=== PATIENT | female | born 1960 | race Caucasian/White ===

== ENCOUNTER 2022-02-17 14:09 | Inpatient (IN) | payer MEDICARE, OTHER ==
[2022-02-17] MEDS ORDERED: Sodium Chloride 0.9% 10 ML Syringe FLUSH PRN (14:35)
[2022-02-17] MEDS ORDERED: Sodium Chloride 0.9% 1,000 ML IV ONE (14:40)
[2022-02-17 15:30] LABS: CORONAVIRUS COVID-19 NAA NEGATIVE (NEGATIVE)
[2022-02-17 15:45] LABS: PTT,PARTIAL THROMBOPLSTIN TIME 21.6 SEC (22.0-34.0)
[2022-02-17] MEDS ORDERED: Acetaminophen 500 MG Tab PO ONE (15:56)
[2022-02-17 16:25] LABS: ANION GAP 21.9 mEq/L (7-13); CHLORIDE,CL 97 mmol/L (98-107); SODIUM,NA 138 mmol/L (136-145)
[2022-02-17 16:33] LABS: ESTIMATED GFR 44 mL/min (>=60)
[2022-02-17] MEDS ORDERED: NS with KCl 40mEq 1,000 ML IV SCH (16:45)
[2022-02-17] MEDS ORDERED: Magnesium Sulfate/Water 2 GM in Premix Bag 1 BAG IV ONE ×4 (16:51)
[2022-02-17 16:59] LABS: OXYCODONE,URINE POSITIVE (NEGATIVE)
[2022-02-17 17:00] LABS: AMPHETAMINES,URINE NEGATIVE (NEGATIVE); BARBITURATES,URINE NEGATIVE (NEGATIVE); BENZODIAZEPINE,URINE NEGATIVE (NEGATIVE); MDMA (ECSTASY), URINE NEGATIVE (NEGATIVE); METHADONE,URINE NEGATIVE (NEGATIVE); METHAMPHETAMINES,URINE NEGATIVE (NEGATIVE); OPIATES,URINE NEGATIVE (NEGATIVE); PHENCYCLIDINE,URINE NEGATIVE (NEGATIVE); TCA,URINE POSITIVE (NEGATIVE)
[2022-02-17] MEDS ORDERED: HYDROmorphone 1 MG/ML Syringe IVPUSH ONE (17:03)
[2022-02-17] MEDS ORDERED: HYDROmorphone 0.5 MG/0.5 ML Syringe IVPUSH PRN (20:27)
[2022-02-17] MEDS ORDERED: Bisacodyl 5 MG Tab PO PRN (20:27)
[2022-02-17] MEDS ORDERED: Ondansetron 4 MG/2 ML SDV IVPUSH PRN (20:27)
[2022-02-17] MEDS ORDERED: Magnesium Hydroxide 400 MG/5 ML Susp 30 ML Cup PO PRN (20:27)
[2022-02-17] MEDS ORDERED: Albuterol/Ipratropium 3.0-0.5 MG/3 ML Neb Soln NEB PRN (20:27)
[2022-02-17] MEDS ORDERED: Polyethylene Glycol 3350 Powder 17 GM Packet PO PRN (20:27)
[2022-02-17] MEDS ORDERED: Pantoprazole 40 MG Vial IVPUSH ONE (21:28)
[2022-02-17] MEDS ORDERED: Sodium Chloride 0.9% 1,000 ML IV SCH (21:30)
[2022-02-17] MEDS ORDERED: Metoprolol Tartrate 5 MG/5 ML SDV IVPUSH PRN (21:39)
[2022-02-17] MEDS ORDERED: hydrALAZINE 20 MG/ML SDV IVPUSH PRN (21:39)
[2022-02-17] MEDS ORDERED: Loperamide 2 MG Cap PO PRN (21:42)
[2022-02-17] MEDS ORDERED: Amitriptyline 25 MG Tab PO SCH (22:00)
[2022-02-17] MEDS: Acetaminophen/HYDROcodone 325-5 MG Tab PO PRN (22:12)
[2022-02-17] MEDS ORDERED: Fluticasone NASAL Spray 16 GM Bottle NASBOTH PRN (22:12)
[2022-02-17] MEDS: Ibuprofen 600 MG Tab PO PRN (22:12)
[2022-02-17] MEDS: oxyCODONE ER 20 MG TAB.ER PO SCH (23:53)
[2022-02-18] MEDS: Pantoprazole 40 MG Tab.CR PO SCH (05:23)
[2022-02-18 06:59] LABS: ANION GAP 15.4 mEq/L (7-13)
[2022-02-18] MEDS ORDERED: Potassium Chloride 10 MEQ Tab.ER PO ONE (08:32)
[2022-02-18] MEDS: Metoprolol Succinate 50 MG Tab.ER PO SCH (08:43)
[2022-02-18] MEDS: oxyCODONE ER 20 MG TAB.ER PO SCH ×2 (08:45→20:23)
[2022-02-18] MEDS: Acetaminophen 325 MG Tab PO PRN ×2 (08:45→17:04)
[2022-02-18] MEDS ORDERED: diphenhydrAMINE 50 MG/ML SDV IVPUSH PRN (14:05)
[2022-02-18] MEDS: diphenhydrAMINE 50 MG/ML SDV IVPUSH SCH ×3 (14:30→23:49)
[2022-02-18] MEDS ORDERED: Sodium Chloride 0.9% 1,000 ML IV ONE (17:27)
[2022-02-18] MEDS: Acetaminophen/HYDROcodone 325-5 MG Tab PO PRN (18:21)
[2022-02-18] MEDS: Ibuprofen 600 MG Tab PO PRN (20:23)
[2022-02-18] MEDS ORDERED: Non-Formulary Medication 1 Each (Pravastatin Sodium 40 MG Tablet) PO SCH (21:00)
[2022-02-18] MEDS ORDERED: Cyclobenzaprine 10 MG Tab PO SCH (21:00)
[2022-02-18] MEDS ORDERED: Pregabalin 50 MG Cap PO SCH (21:00)
[2022-02-19] MEDS: Acetaminophen 325 MG Tab PO PRN ×2 (03:55→23:46)
[2022-02-19] MEDS: Levothyroxine 100 MCG Tab PO SCH (05:32)
[2022-02-19] MEDS: Ibuprofen 600 MG Tab PO PRN (05:32)
[2022-02-19] MEDS: diphenhydrAMINE 50 MG/ML SDV IVPUSH SCH (05:32)
[2022-02-19] MEDS: Pantoprazole 40 MG Tab.CR PO SCH (05:32)
[2022-02-19 05:47] LABS: BORDETELLA PARAPERT IS1001 Not Detected (Not Detected)
[2022-02-19] MEDS: Acetaminophen/HYDROcodone 325-5 MG Tab PO PRN ×2 (07:40→13:44)
[2022-02-19] MEDS ORDERED: Magnesium Sulfate/Water 2 GM in Premix Bag 1 BAG IV ONE (07:56)
[2022-02-19] MEDS ORDERED: Potassium Chloride 10 MEQ Tab.ER PO ONE ×3 (07:56→13:30)
[2022-02-19] MEDS: Metoprolol Succinate 50 MG Tab.ER PO SCH (08:08)
[2022-02-19] MEDS: oxyCODONE ER 20 MG TAB.ER PO SCH ×2 (08:13→21:13)
[2022-02-19] MEDS ORDERED: Non-Formulary Medication 1 Each (Sertraline [Zoloft] 100 MG Tablet) PO SCH (09:00)
[2022-02-19] MEDS ORDERED: buPROPion 150 MG Tab.ER PO SCH (09:00)
[2022-02-20] MEDS: Acetaminophen/HYDROcodone 325-5 MG Tab PO PRN ×2 (03:52→10:50)
[2022-02-20] MEDS: Levothyroxine 100 MCG Tab PO SCH (06:10)
[2022-02-20] MEDS: Pantoprazole 40 MG Tab.CR PO SCH (06:10)
[2022-02-20 07:00] LABS: ANION GAP 16.4 mEq/L (7-13)
[2022-02-20] MEDS ORDERED: Magnesium Sulfate/Water 2 GM in Premix Bag 1 BAG IV ONE (07:29)
[2022-02-20] MEDS: oxyCODONE ER 20 MG TAB.ER PO SCH ×2 (08:58→21:16)
[2022-02-20] MEDS: Metoprolol Succinate 50 MG Tab.ER PO SCH (08:59)
[2022-02-20] MEDS ORDERED: Iopamidol 612 MG/ML 50 ML SDV IVPUSH ONE (10:37)
[2022-02-20] MEDS ORDERED: Iopamidol 612 MG/ML 100 ML Bottle IVPUSH ONE (10:37)
[2022-02-20] MEDS ORDERED: Loperamide 2 MG Cap PO PRN (11:38)
[2022-02-20] MEDS: Acetaminophen 325 MG Tab PO PRN (21:17)
[2022-02-21] MEDS: Pantoprazole 40 MG Tab.CR PO SCH (05:23)
[2022-02-21] MEDS: Levothyroxine 100 MCG Tab PO SCH (05:23)
[2022-02-21] MEDS: Acetaminophen/HYDROcodone 325-5 MG Tab PO PRN (05:23)
[2022-02-21 06:57] LABS: ANION GAP 14.3 mEq/L (7-13)
[2022-02-21] MEDS ORDERED: Potassium Chloride 10 MEQ Tab.ER PO ONE (07:42)
[2022-02-21] MEDS: oxyCODONE ER 20 MG TAB.ER PO SCH ×2 (09:10→21:11)
[2022-02-21] MEDS: Metoprolol Succinate 50 MG Tab.ER PO SCH (09:10)
[2022-02-21] MEDS: Acetaminophen 325 MG Tab PO PRN (21:12)
[2022-02-22] MEDS: Acetaminophen/HYDROcodone 325-5 MG Tab PO PRN (05:56)
[2022-02-22] MEDS: Levothyroxine 100 MCG Tab PO SCH (05:56)
[2022-02-22] MEDS: Pantoprazole 40 MG Tab.CR PO SCH (05:56)
[2022-02-22] MEDS: Acetaminophen 325 MG Tab PO PRN (07:35)
[2022-02-22] MEDS ORDERED: Ciprofloxacin 500 MG Tab ONE (08:00)
[2022-02-22] MEDS ORDERED: Ciprofloxacin 500 MG Tab PO ONE (09:49)
[2022-02-22] MEDS: oxyCODONE ER 20 MG TAB.ER PO SCH (10:56)
[2022-02-22] MEDS: Metoprolol Succinate 50 MG Tab.ER PO SCH (10:56)
== END 2022-02-22 09:50 | disposition home or self-care (01) | DRG 392 ==
LOC: DL.ED 14:09 → DL.OB 18:16 → UNDOADMOB 18:16 → DL.MS 18:16 → DL.ED 19:03 → OBSVTOIN 22:00
PROVIDERS: ADMIT Internal Medicine; ATTEND Hospitalist
DX: K52.9 Noninfective gastroenteritis and colitis, unspecified (principal); R50.9 Fever, unspecified; N17.9 Acute kidney failure, unspecified; D61.818 Other pancytopenia; Z68.41 Body mass index [BMI] 40.0-44.9, adult; D69.6 Thrombocytopenia, unspecified; N20.0 Calculus of kidney; E87.8 Other disorders of electrolyte and fluid balance, not elsewhere classified; K76.0 Fatty (change of) liver, not elsewhere classified; E87.6 Hypokalemia; R82.4 Acetonuria; R53.1 Weakness; E66.01 Morbid (severe) obesity due to excess calories; E83.42 Hypomagnesemia; E11.9 Type 2 diabetes mellitus without complications; E27.9 Disorder of adrenal gland, unspecified; E05.80 Other thyrotoxicosis without thyrotoxic crisis or storm; I10 Essential (primary) hypertension; E78.5 Hyperlipidemia, unspecified; J45.909 Unspecified asthma, uncomplicated; E05.90 Thyrotoxicosis, unspecified without thyrotoxic crisis or storm; Z20.822 Contact with and (suspected) exposure to COVID-19; G89.4 Chronic pain syndrome; M48.061 Spinal stenosis, lumbar region without neurogenic claudication; M19.90 Unspecified osteoarthritis, unspecified site; M94.262 Chondromalacia, left knee; F32.A Depression, unspecified; E66.9 Obesity, unspecified; Z88.1 Allergy status to other antibiotic agents; Z88.8 Allergy status to other drugs, medicaments and biological substances; Z79.899 Other long term (current) drug therapy; Z79.890 Hormone replacement therapy; Z86.19 Personal history of other infectious and parasitic diseases
CPT/HCPCS: 0240U; 36415; 71045; 71260; 74176; 74177; 80048; 80053; 80074; 80305; 81001; 82085; 82150; 82550; 82947; 83520; 83605; 83690; 83735; 84145; 84439; 84443; 84484; 85025; 85610; 85651; 85730; 86038; 86140; 86200; 86225; 86235; 86256; 86431; 87040; 87045; 87046; 87486; 87493; 87581; 87633; 87798; 87899; 93005; 87177; 87206; 87207; A9270-GY; C9113; J1170; J1200; J3475; J3480; J3490; J7030; Q9967

== ENCOUNTER 2023-11-19 18:02 | Inpatient (IN) | payer MEDICARE, OTHER ==
[2023-11-19] MEDS: Sodium Chloride 0.9% 10 ML Syringe FLUSH PRN (18:30)
[2023-11-19] MEDS: HYDROmorphone 1 MG/ML Syringe IVPUSH ONE ×2 (18:30→19:40)
[2023-11-19] MEDS: fentaNYL 100 MCG/2 ML SDV IVPUSH ONE (20:59)
[2023-11-19] MEDS ORDERED: Temazepam 15 MG Cap PO PRN (22:47)
[2023-11-19] MEDS ORDERED: Magnesium Hydroxide 400 MG/5 ML Susp 30 ML Cup PO PRN (22:47)
[2023-11-19] MEDS ORDERED: Ondansetron 4 MG/2 ML SDV IVPUSH PRN (22:47)
[2023-11-19] MEDS ORDERED: Morphine 2 MG/ML SYRINGE IVPUSH PRN ×2 (22:47→22:55)
[2023-11-19] MEDS ORDERED: Polyethylene Glycol 3350 Powder 17 GM Packet PO PRN (22:47)
[2023-11-19] MEDS ORDERED: Albuterol/Ipratropium 3.0-0.5 MG/3 ML Neb Soln NEB PRN (22:47)
[2023-11-19] MEDS ORDERED: Naloxone 2 MG/2 ML Syringe IVPUSH PRN (22:47)
[2023-11-19] MEDS ORDERED: Glucagon,Human Recombinant 1 MG Vial IM PRN (22:53)
[2023-11-19] MEDS ORDERED: 50% Dextrose in Water 50 ML Syringe IVPUSH PRN (22:53)
[2023-11-19] MEDS ORDERED: Bisacodyl 10 MG Supp RECTAL PRN (23:01)
[2023-11-19] MEDS ORDERED: diphenhydrAMINE 50 MG/ML SDV IVPUSH ONE (23:03)
[2023-11-19] MEDS: oxyCODONE ER 20 MG TAB.ER PO ONE (23:41)
[2023-11-19] MEDS: Pregabalin 50 MG Cap PO ONE (23:42)
[2023-11-19] MEDS: hydrOXYzine HCl 25 MG Tab PO ONE (23:42)
[2023-11-19] MEDS: Cyclobenzaprine 10 MG Tab PO ONE (23:42)
[2023-11-20] MEDS: fentaNYL 25 MCG/HR Transdermal Patch TRDERM SCH (01:44)
[2023-11-20] MEDS: Levothyroxine 100 MCG Tab PO SCH (05:48)
[2023-11-20] MEDS: oxyCODONE 5 MG Tab PO PRN ×2 (05:48→14:27)
[2023-11-20 06:29] LABS: BASOPHILS PERCENT AUTO 0.1 % (0.0-1.0); EOSINOPHILS PERCENT AUTO 1.9 % (1.0-3.0); HEMATOCRIT 38.3 % (37.0-47.0); HEMOGLOBIN 11.8 g/dL (12.0-16.0); LYMPHOCYTES PERCENT AUTO 15.9 % (20.5-50.1); MEAN CORPUSCULAR HEMOGLOBIN 28.4 pg (27.0-34.0); MEAN CORPUSCULAR HGB CONC 30.8 g/dL (33.0-35.0); MEAN CORPUSCULAR VOLUME 92.3 fL (80-100); MONOCYTES PERCENT AUTO 10.3 % (2-8); NEUTROPHILS PERCENT AUTO 71.8 % (42.2-75.2); PLATELET COUNT,PLT 250 10^3/uL (150-450); RED BLOOD CELL COUNT 4.15 10^6/uL (4.2-5.4); WHITE BLOOD CELL COUNT,WBC 6.8 10^3/uL (5.0-10.0)
[2023-11-20 06:48] LABS: ALBUMIN 3.1 g/dL (3.4-5.0); ANION GAP 14.9 mEq/L (7-13); BILIRUBIN TOTAL 0.6 mg/dL (0.2-1.0); BUN/CREATININE RATIO 15.1 (No establ ref range); CREATININE 1.06 mg/dL (0.55-1.02); EST CRCL DRUG DOSING (CG) 52.14 mL/min; MAGNESIUM 1.5 mg/dL (1.8-2.4); POTASSIUM,K 3.9 mmol/L (3.5-5.1); PROTEIN TOTAL,TP 7.2 g/dL (6.4-8.2)
[2023-11-20 06:49] LABS: APPEARANCE,URINE CLEAR (CLEAR); BILIRUBIN,URINE NEGATIVE (NEGATIVE); COLOR,URINE DARK YELLOW (YELLOW); GLUCOSE,URINE NEGATIVE (NEGATIVE); KETONES,URINE TRACE (NEGATIVE); LEUKOCYTE ESTERASE,URINE SMALL (NEGATIVE); NITRITE,URINE NEGATIVE (NEGATIVE); OCCULT BLOOD,URINE MODERATE (NEGATIVE); PROTEIN,URINE NEGATIVE (NEGATIVE); UROBILINOGEN,URINE 0.2 mg/dL (0.2-1.0)
[2023-11-20 06:55] LABS: A/G RATIO 0.76
[2023-11-20 07:48] LABS: BACTERIA,URINE FEW /HPF (0-FEW/HPF); EPITHELIAL CELLS,URINE FEW /HPF (NOT SEEN); MUCUS,URINE FEW /LPF (NOT SEEN); URIC ACID CRYSTALS,URINE FEW (NOT SEEN)
[2023-11-20] MEDS: Pregabalin 50 MG Cap PO SCH (08:26)
[2023-11-20] MEDS: Enoxaparin 40 MG/0.4 ML Syringe SUBCUT SCH (08:26)
[2023-11-20] MEDS: Sertraline 50 MG Tab PO SCH (08:26)
[2023-11-20] MEDS: Metoprolol Succinate 50 MG Tab.ER PO SCH (08:26)
[2023-11-20] MEDS: Cyclobenzaprine 10 MG Tab PO SCH (08:27)
[2023-11-20] MEDS: buPROPion 150 MG Tab.ER PO SCH (08:27)
[2023-11-20] MEDS: Insulin Lispro 100 Units/ML 3 ML Vial SUBCUT SCH (08:29)
[2023-11-20] MEDS: Losartan 25 MG Tab PO SCH (08:29)
[2023-11-20] MEDS: oxyCODONE ER 20 MG TAB.ER PO SCH (08:33)
[2023-11-20] MEDS: oxyCODONE ER 10 MG TAB.ER PO SCH (08:33)
[2023-11-20] MEDS: Magnesium Sulfate/Water 2 GM in Premix Bag 1 BAG IV ONE (11:08)
[2023-11-20] MEDS: Acetaminophen 325 MG Tab PO PRN (17:42)
[2023-11-20] MEDS: hydrOXYzine HCl 25 MG Tab PO PRN (18:37)
[2023-11-20] MEDS: Cyclobenzaprine 10 MG Tab PO PRN (20:56)
[2023-11-20] MEDS: Pravastatin 20 MG Tab PO SCH (20:57)
[2023-11-20] MEDS: Sennosides/Docusate Sodium 50-8.6 MG Tab PO SCH (20:57)
[2023-11-21] MEDS: Check Patch TRDERM SCH (05:43)
[2023-11-21 06:26] LABS: BASOPHILS PERCENT AUTO 0.3 % (0.0-1.0); HEMATOCRIT 35.1 % (37.0-47.0); HEMOGLOBIN 10.8 g/dL (12.0-16.0); LYMPHOCYTES PERCENT AUTO 17.4 % (20.5-50.1); MEAN CORPUSCULAR HEMOGLOBIN 28.6 pg (27.0-34.0); MEAN CORPUSCULAR HGB CONC 30.8 g/dL (33.0-35.0); MEAN CORPUSCULAR VOLUME 92.9 fL (80-100); MONOCYTES PERCENT AUTO 9.2 % (2-8); NEUTROPHILS PERCENT AUTO 71.1 % (42.2-75.2); PLATELET COUNT,PLT 191 10^3/uL (150-450); RED BLOOD CELL COUNT 3.78 10^6/uL (4.2-5.4); WHITE BLOOD CELL COUNT,WBC 5.9 10^3/uL (5.0-10.0)
[2023-11-21 07:04] LABS: A/G RATIO 0.81; BILIRUBIN TOTAL 0.5 mg/dL (0.2-1.0); CALCIUM 9.1 mg/dL (8.5-10.1); CREATININE 0.89 mg/dL (0.55-1.02); EST CRCL DRUG DOSING (CG) 62.1 mL/min; MAGNESIUM 1.9 mg/dL (1.8-2.4); PROTEIN TOTAL,TP 6.7 g/dL (6.4-8.2); T4 FREE 1.33 ng/dL (0.76-1.46); TSH ULTRASENSITIVE 2.48 uIU/mL (0.36-3.74)
[2023-11-21] MEDS: Oxybutynin 5 MG Tab.ER PO SCH (08:56)
[2023-11-21] MEDS: Omeprazole 20 MG Cap.CR PO SCH (08:56)
[2023-11-22 06:40] LABS: BASOPHILS PERCENT AUTO 0.3 % (0.0-1.0); EOSINOPHILS PERCENT AUTO 2.2 % (1.0-3.0); HEMATOCRIT 35.2 % (37.0-47.0); HEMOGLOBIN 10.9 g/dL (12.0-16.0); LYMPHOCYTES PERCENT AUTO 16.3 % (20.5-50.1); MEAN CORPUSCULAR HEMOGLOBIN 28.7 pg (27.0-34.0); MEAN CORPUSCULAR VOLUME 92.6 fL (80-100); MONOCYTES PERCENT AUTO 8.7 % (2-8); NEUTROPHILS PERCENT AUTO 72.5 % (42.2-75.2); PLATELET COUNT,PLT 195 10^3/uL (150-450); WHITE BLOOD CELL COUNT,WBC 6.8 10^3/uL (5.0-10.0)
[2023-11-22 07:23] LABS: ANION GAP 14.8 mEq/L (7-13); BILIRUBIN TOTAL 0.5 mg/dL (0.2-1.0); BUN/CREATININE RATIO 18.1 (No establ ref range); CALCIUM 8.9 mg/dL (8.5-10.1); CREATININE 0.83 mg/dL (0.55-1.02); EST CRCL DRUG DOSING (CG) 66.59 mL/min; MAGNESIUM 1.7 mg/dL (1.8-2.4); POTASSIUM,K 3.8 mmol/L (3.5-5.1); PROTEIN TOTAL,TP 6.7 g/dL (6.4-8.2)
[2023-11-22 07:27] LABS: A/G RATIO 0.81
[2023-11-22] MEDS: Magnesium Sulfate/Water 2 GM in Premix Bag 1 BAG IV ONE (08:43)
[2023-11-22] MEDS: metFORMIN 500 MG Tab PO SCH (17:53)
[2023-11-22] MEDS: glipiZIDE 2.5 MG Tab.ER PO SCH (17:53)
[2023-11-23 06:38] LABS: BASOPHILS PERCENT AUTO 0.1 % (0.0-1.0); EOSINOPHILS PERCENT AUTO 1.9 % (1.0-3.0); HEMATOCRIT 35.3 % (37.0-47.0); HEMOGLOBIN 11.1 g/dL (12.0-16.0); MEAN CORPUSCULAR HEMOGLOBIN 29.1 pg (27.0-34.0); MEAN CORPUSCULAR HGB CONC 31.4 g/dL (33.0-35.0); MEAN CORPUSCULAR VOLUME 92.4 fL (80-100); MONOCYTES PERCENT AUTO 7.4 % (2-8); NEUTROPHILS PERCENT AUTO 76.6 % (42.2-75.2); PLATELET COUNT,PLT 207 10^3/uL (150-450); RED BLOOD CELL COUNT 3.82 10^6/uL (4.2-5.4); WHITE BLOOD CELL COUNT,WBC 7.7 10^3/uL (5.0-10.0)
[2023-11-23 07:20] LABS: ANION GAP 13.8 mEq/L (7-13); BILIRUBIN TOTAL 0.5 mg/dL (0.2-1.0); CALCIUM 9.1 mg/dL (8.5-10.1); CREATININE 0.85 mg/dL (0.55-1.02); EST CRCL DRUG DOSING (CG) 65.02 mL/min; MAGNESIUM 1.8 mg/dL (1.8-2.4); POTASSIUM,K 3.8 mmol/L (3.5-5.1); PROTEIN TOTAL,TP 6.8 g/dL (6.4-8.2)
[2023-11-23 07:25] LABS: A/G RATIO 0.79
[2023-11-23] MEDS: Magnesium Sulfate/Water 2 GM in Premix Bag 1 BAG IV ONE (08:47)
== END 2023-11-24 13:50 | disposition home or self-care (01) | DRG 536 ==
LOC: DL.ED 18:02 → DL.MS 21:43 → DL.ED 21:52 → OBSVTOIN 11-21 17:20
PROVIDERS: ADMIT Internal Medicine; ATTEND Internal Medicine
DX: S72.111A Displaced fracture of greater trochanter of right femur, initial encounter for closed fracture (principal); E83.42 Hypomagnesemia; E11.9 Type 2 diabetes mellitus without complications; Z88.1 Allergy status to other antibiotic agents; I10 Essential (primary) hypertension; Z79.890 Hormone replacement therapy; E88.09 Other disorders of plasma-protein metabolism, not elsewhere classified; F32.A Depression, unspecified; X50.1XXA Overexertion from prolonged static or awkward postures, initial encounter; E03.9 Hypothyroidism, unspecified; E11.42 Type 2 diabetes mellitus with diabetic polyneuropathy; M19.90 Unspecified osteoarthritis, unspecified site; F41.9 Anxiety disorder, unspecified; H54.7 Unspecified visual loss; M54.9 Dorsalgia, unspecified; G47.00 Insomnia, unspecified; E66.9 Obesity, unspecified; Z96.641 Presence of right artificial hip joint; G89.4 Chronic pain syndrome; E11.65 Type 2 diabetes mellitus with hyperglycemia; R79.89 Other specified abnormal findings of blood chemistry; Z88.8 Allergy status to other drugs, medicaments and biological substances; Z79.84 Long term (current) use of oral hypoglycemic drugs; Z79.899 Other long term (current) drug therapy; Z79.2 Long term (current) use of antibiotics; Z85.850 Personal history of malignant neoplasm of thyroid; Z68.35 Body mass index [BMI] 35.0-35.9, adult; W19.XXXA Unspecified fall, initial encounter
CPT/HCPCS: 36415 ×2; 70450; 73502; 73700 ×2; 80053 ×2; 81001; 82306; 82947 ×6; 83735 ×2; 84439; 84443; 85025 ×2; 96365; 96366; 96372 ×2; 96375 ×2; 96376; 99285; A9270 ×30; G0378 ×4; J1170 ×2; J1650 ×2; J1815; J3010; J3475; 96374; 97110-GP; 97116-GP; 97161-GP; 99284; J3490